=== PATIENT | female | born 1960 | race Caucasian/White ===

== ENCOUNTER 2018-04-25 18:43 | Emergency (ER) | payer BC ==
--- NOTE | 2018-04-25 19:57 | ED ---
Upper Extremity Pain - HPI Summary HPI Summary: 58-year-old female presents with right hand injury today. She states she slipped and fell onto her right hand. She states she is unsure how she landed. She states she has pain over her fifth finger. she denies any numbness or tingling. No previous fracture to the area. she is right-handed. Works as an residential gas heat technician. Has no significant medical conditions. - History of Current Complaint Chief Complaint: EDExtremityUpper Stated Complaint: INJURY TO RT HAND Time Seen by Provider: 04/25/18 19:09 - Allergies/Home Medications Allergies/Adverse Reactions: Allergies Allergy/AdvReac Type Severity Reaction Status Date / Time No Known Allergies Allergy Verified 01/06/18 12:35 Home Medications: Home Medications Ibuprofen 600 mg PO Q6H 04/25/18 [History Confirmed 04/25/18] PMH/Surg Hx/FS Hx/Imm Hx Endocrine/Hematology History: Denies: Hx Diabetes Cardiovascular History: Denies: Hx Hypertension, Hx Pacemaker/ICD History: Denies: Hx Renal Disease Musculoskeletal History: Denies: Hx Osteoporosis Sensory History: Denies: Hx Hearing Aid Psychiatric History: Denies: Hx Panic Disorder - Cancer History Hx Chemotherapy: No Hx Radiation Therapy: No - Surgical History Surgery Procedure, Year, and Place: TUBAL LIGATION 1994 Infectious Disease History: No Infectious Disease History: Denies: Traveled Outside the [place] in Last 30 Days - Family History Known Family History: Positive: Non-Contributory - Social History Alcohol Use: Occasionally Alcohol Amount: 2 beers weekly Substance Use Type: Reports: None Smoking Status (MU): Never Smoked Tobacco Review of Systems Negative: Fever Negative: Chest Pain Negative: Shortness Of Breath Positive: Myalgia - right hand pain All Other Systems Reviewed And Are Negative: Yes Physical Exam Triage Information Reviewed: Yes Vital Signs On Initial Exam: Initial Vitals Temp Pulse Resp BP Pulse Ox 99.6 F 67 14 117/68 96 04/25/18 18:53 04/25/18 18:53 04/25/18 18:53 04/25/18 18:53 04/25/18 18:53 Vital Signs Reviewed: Yes Appearance: Positive: Well-Appearing Skin: Positive: Warm, Dry Head/Face: Positive: Normal Head/Face Inspection Eyes: Positive: Normal, Conjunctiva Clear ENT: Positive: Pharynx normal Respiratory/Lung Sounds: Positive: Clear to Auscultation, Breath Sounds Present Cardiovascular: Positive: Normal, RRR Musculoskeletal: Positive: Limited @ - right pinky, Other - tenderness and edema over 5th metacarpel, good pulses, capillary refill<2secs Neurological: Positive: Normal Psychiatric: Positive: Normal Procedures - Splinting hand Location: right hand Hand-Made Type: orthoglass Splint: ulnar Pre-Proc Neuro Vasc Exam: normal Post-Proc Neuro Vasc Exam: normal Diagnostics - Vital Signs Vital Signs Temp Pulse Resp BP Pulse Ox 04/25/18 18:53 99.6 F 67 14 117/68 96 - Laboratory Lab Statement: Any lab studies that have been ordered have been reviewed, and results considered in the medical decision making process. - Radiology hand Radiology Interpretation Completed By: ED Physician Summary of Radiographic Findings: right 5th metacarpel fracture Course/Dx - Course Course Of Treatment: 58-year-old female presents with right hand injury today. She states she slipped and fell onto her right hand. She states she is unsure how she landed. She states she has pain over her fifth finger. she denies any numbness or tingling. No previous fracture to the area. she is right-handed. Works as an residential gas heat technician. Has no significant medical conditions. On exam tenderness over fifth metacarpal. Neurovascularly intact. X-ray shows a fifth metacarpal fracture. Placed in ulnar gutter splint. Told to practice rice. Told to follow up with ortho or primary. Patient understands agrees with plan - Diagnoses Differential Diagnosis/HQI/PQRI: Positive: Fracture (Closed), Strain, Sprain Provider Diagnoses: Closed fracture of 5th metacarpal Discharge - Sign-Out/Discharge Documenting (check all that apply): Patient Departure Patient Received Moderate/Deep Sedation with Procedure: No - Discharge Plan Condition: Good Disposition: HOME Patient Education Materials: Hand Fracture (ED) Referrals: Giuseppe Sanchez MD [Primary Care Provider] - Farshad Mejia MD [Medical Doctor] - Additional Instructions: Keep splint on area and keep dry follow up with ortho or primary Use ibuprofen or tyenlol for pain every 6 hours Ice, elevate Return to ED if develop any new or worsening symptoms - Billing Disposition and Condition Condition: GOOD Disposition: Home
[2018-04-25 20:06] VITALS: BP 111/65
== END 2018-04-25 20:05 | disposition home or self-care (01) ==
LOC: ED 18:43
DX: S62.316A Displaced fracture of base of fifth metacarpal bone, right hand, initial encounter for closed fracture (principal); W01.0XXA Fall on same level from slipping, tripping and stumbling without subsequent striking against object, initial encounter; Y92.9 Unspecified place or not applicable
CPT/HCPCS: 99282

== ENCOUNTER 2022-08-05 06:29 | Observation (INO) ==
[~2022-08-05 06:29] MED LIST: Buffered Lidocaine 1% SYRIN 1 ml INTRADERM ONE; Dexamethasone IV 4 MG/ML VIAL 1 ml VIAL IV SLOW PU ONE; Famotidine IV 10 MG/ML 2 ml VIAL (20 mg) IV ONE; Lactated Ringers 1000 ml BAG 1,000 ML IV SCH; Lidocaine 2% PF 5 ML VIAL ONE; Phenylephrine IV 10 MG/ML 1 ml VIAL ONE; Propofol 10 MG/ML 20 ML BTL ONE
[2022-08-05] MEDS ORDERED: ROPIVACAINE 5 MG/ML 30 ML BTL (0.5%) ONE (06:51)
[2022-08-05] MEDS ORDERED: Dexamethasone IV 4 MG/ML VIAL 1 ml VIAL ONE (07:04)
[2022-08-05] MEDS ORDERED: Famotidine IV 10 MG/ML 2 ml VIAL (20 mg) ONE (07:05)
[2022-08-05] MEDS ORDERED: ceFAZolin 2 GM PREMIX 2 GM/50 ML BAG ONE (07:09)
[2022-08-05 07:19] LABS: Rapid COVID-19 Molecular Undetected (Undetected)
[2022-08-05] MEDS ORDERED: Midazolam 5 mg/5 ml VIAL 1 mg/ml 5 ml VIAL (5 mg) ONE (08:46)
[2022-08-05] MEDS ORDERED: Ondansetron 4 mg VIAL 2 MG/ML 2 ml VIAL ONE (08:46)
[2022-08-05] MEDS ORDERED: fentaNYL 100 mcg/2 ml 50 MCG/ML VIAL ONE (08:49)
[2022-08-05] MEDS ORDERED: Ondansetron 4 mg VIAL 2 MG/ML 2 ml VIAL IV PRN (09:11)
[2022-08-05] MEDS ORDERED: Magnesium Hydroxide LIQ 30 ML UDC PO PRN (09:11)
[2022-08-05] MEDS ORDERED: Lactulose 30 ml UDC PO PRN (09:11)
[2022-08-05] MEDS ORDERED: Morphine 2 MG/ML SYRINGE IV PRN (09:11)
[2022-08-05] MEDS ORDERED: Ondansetron ODT 4 mg TAB 4 MG TAB PO PRN (09:11)
[2022-08-05] MEDS ORDERED: Bupivacaine-MPF SPINAL 7.5 MG/ML - 2ML AMP ONE (09:21)
[2022-08-05] MEDS ORDERED: Naloxone 0.4 mg VIAL 0.4 mg/ml 1 ml VIAL IV PRN ×2 (09:31→11:31)
[2022-08-05] MEDS ORDERED: fentaNYL 100 mcg/2 ml 50 MCG/ML VIAL IV PRN ×2 (09:31→11:31)
[2022-08-05] MEDS ORDERED: Propofol 10 MG/ML 20 ML BTL ONE ×2 (09:48→10:43)
[2022-08-05] MEDS ORDERED: Acetaminophen IV 1 GM/100ML 1,000 MG/100 ML BAG IV ONE (09:48)
[2022-08-05] MEDS ORDERED: Lactated Ringers 1000 ml BAG 1,000 ML IV SCH (10:00)
[2022-08-05] MEDS ORDERED: Morphine 4 MG/ML VIAL (1 ml) IV PRN (11:31)
[2022-08-05] MEDS ORDERED: Prochlorperazine 5 mg/ml 2 ml VIAL (10 mg) IV PRN (11:31)
[2022-08-05 17:32] VITALS: BP 130/76
[2022-08-05] MEDS ORDERED: ceFAZolin 1 GM ADVAN 1 GM in NS 0.9% 50 ML 50 ML IVPB SCH (18:00)
[2022-08-05] MEDS ORDERED: Magnesium Hydroxide LIQ 30 ML UDC PO SCH (21:00)
[2022-08-06] MEDS ORDERED: Vitamin THERAPEUTIC TAB PO SCH (09:00)
== END 2022-08-05 18:45 | disposition home or self-care (01) ==
LOC: AA 06:29 → INTOOBSV 06:29 → EDSTATUS 07:30 → SSU 13:07
PROVIDERS: ADMIT Orthopaedic Surgery Adult Reconstructive Orthopaedic Surgery; ATTEND Orthopaedic Surgery Adult Reconstructive Orthopaedic Surgery